=== PATIENT | male | born 1990 | race Caucasian/White ===

== ENCOUNTER 2017-05-13 19:16 | Emergency (ER) | payer BC ==
[2017-05-13 20:35] LABS: % BASOPHILS 3.5 % (0.0-2.0); % EOSINOPHILS 0.5 % (0.0-5.0); % LYMPHOCYTES 10.8 % (20.0-50.0); % NEUTROPHILS 78.2 % (40.0-80.0); HEMATOCRIT 43.1 % (41.0-60); HEMOGLOBIN 14.6 gm/dL (12-16); MEAN CELL VOLUME 96.5 fl (80-99); MEAN CORPUSCULAR HEMOGLOBIN 32.8 pg (26.0-30.0); MEAN PLATELET VOLUME 7.4 fl; NEUTROPHILE ABSOLUTE 14.5 Th/cmm (1.8-8.0); PLATELET COUNT 372 Th/cmm (150-400); RED BLOOD COUNT 4.46 Mil/cmm (4.30-5.70); RED CELL DISTRIBUTION WIDTH 11.7 % (11.5-20.0)
[2017-05-13 20:45] LABS: WHITE BLOOD COUNT 18.6 Th/cmm (4.8-10.8)
[2017-05-13 20:52] LABS: ALB/GLOB RATIO 1.7 (1.0-1.8); ALKALINE PHOSPHATASE 50 U/L (34-104); ANION GAP 16.2 (7.0-16.0); BILIRUBIN,TOTAL 1.2 mg/dL (0.3-1.0); BUN - UREA NITROGEN 8 mg/dL (7-25); BUN/CREATININE RATIO 8.9; CALCIUM SERUM 9.9 mg/dL (8.6-10.3); CARBON DIOXIDE 19.1 mEq/L (21.0-31.0); CHLORIDE 104 mEq/L (98-107); CREATININE - SERUM 0.9 mg/dL (0.7-1.3); GLUCOSE 92 mg/dL (70-105); POTASSIUM SERUM 3.3 mEq/L (3.5-5.1); SGOT 20 U/L (13-39); SGPT/ALT 16 U/L (7-52); SODIUM SERUM 136 mEq/L (136-145)
[2017-05-13] MEDS ORDERED: cefTRIAXone 1 GM in Sodium Chloride 0.9% 50 ML IV ONE (21:13)
[2017-05-13] MEDS ORDERED: Sodium Chloride 0.9% 1,000 ML IV ONE ×2 (21:13→23:51)
[2017-05-13 21:27] LABS: URINE BILIRUBIN NEGATIVE (NEGATIVE); URINE BLOOD NEGATIVE (NEGATIVE); URINE GLUCOSE (UA) NEGATIVE (NEGATIVE); URINE KETONE TRACE mg/dL (NEGATIVE); URINE PROTEIN NEGATIVE (NEGATIVE); URINE UROBILINOGEN 0.2 E.U./dL (0.2 - 1.0)
[2017-05-13 21:29] LABS: URINE COLOR YELLOW
[2017-05-13 21:30] LABS: URINE BACTERIA OCCASIONAL /hpf (NONE SEEN); URINE EPITHELIAL CELLS RARE /lpf (FEW); URINE RBC NONE SEEN /hpf (0-5); URINE WBC 0-2 /hpf (0-5)
[2017-05-13 21:43] LABS: AMPHETAMINE URINE POSITIVE (NEGATIVE); BARBITURATES URINE NEGATIVE (NEGATIVE); METHADONE URINE NEGATIVE (NEGATIVE)
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
[2017-05-13 23:39] LABS: BE(B) -2.4 mEq/L (-3.0-3.0); HCO3 23.1 mEq/L (20.0-26.0); pH 7.42 (7.35-7.45)
[2017-05-13 23:40] LABS: ABG SOURCE Arterial; ALLEN TEST P; FIO2 21
[2017-05-14 01:29] LABS: % LYMPHOCYTES 15.7 % (20.0-50.0); % MONOCYTES 9.3 % (2.0-10.0); HEMOGLOBIN 13.1 gm/dL (12-16); MEAN CELL VOLUME 95.1 fl (80-99); MEAN CORPUSCULAR HEMOGLOBIN 32.4 pg (26.0-30.0); MEAN CORPUSCULAR HGB CONC 34.1 pg (28.0-36.0); MEAN PLATELET VOLUME 7.8 fl; NEUTROPHILE ABSOLUTE 12.4 Th/cmm (1.8-8.0); PLATELET COUNT 317 Th/cmm (150-400); RED BLOOD COUNT 4.05 Mil/cmm (4.30-5.70); RED CELL DISTRIBUTION WIDTH 11.6 % (11.5-20.0)
[2017-05-14 01:34] LABS: ALB/GLOB RATIO 1.7 (1.0-1.8); ALKALINE PHOSPHATASE 55 U/L (34-104); BILIRUBIN,TOTAL 1.3 mg/dL (0.3-1.0); BUN - UREA NITROGEN 10 mg/dL (7-25); BUN/CREATININE RATIO 11.1; CALCIUM SERUM 8.7 mg/dL (8.6-10.3); CARBON DIOXIDE 19.3 mEq/L (21.0-31.0); CHLORIDE 109 mEq/L (98-107); CREATININE - SERUM 0.9 mg/dL (0.7-1.3); GLUCOSE 88 mg/dL (70-105); POTASSIUM SERUM 3.3 mEq/L (3.5-5.1); SGOT 18 U/L (13-39); SGPT/ALT 14 U/L (7-52); SODIUM SERUM 139 mEq/L (136-145)
[2017-05-14 01:46] LABS: WHITE BLOOD COUNT 16.9 Th/cmm (4.8-10.8)
[2017-05-14 01:47] LABS: HEMATOCRIT 38.5 % (41.0-60)
[2017-05-14 02:37] LABS: CREATINE KINASE MB 6.2 ng/mL (0.6-6.3)
--- NOTE | 2017-05-14 09:46 | Diagnostic Imaging Report ---
CHEST X-RAY: AP view INDICATION: Cough COMPARISON: None FINDINGS: There is no focal consolidation or pleural effusions The heart is normal in size. The osseous structures demonstrate no acute abnormalities. IMPRESSION: No acute cardiopulmonary disease.
== END 2017-05-14 00:45 | disposition still patient (30) ==
LOC: ER 19:16
DX: J20.9 Acute bronchitis, unspecified (principal); F17.200 Nicotine dependence, unspecified, uncomplicated; I10 Essential (primary) hypertension
CPT/HCPCS: 99291; 96365; 82803; 93005; 71010; 36415 ×2; 83605 ×2; 80307; 85025 ×2; 82550; 82553; 87040; 81001; 80053 ×2; J0696; J7030; Z7502